=== PATIENT | female | born 1985 | race Caucasian/White ===

== ENCOUNTER 2018-10-03 08:01 | Day surgery (SDC) | payer OTHER ==
[2018-10-02 17:05] VITALS: Ht 167.6 cm; Wt 90.9 kg
[~2018-10-03] VITALS: Ht 167.6 cm; Wt 90.9 kg
[2018-10-03] VITALS (15 sets, daily range): BP systolic 116–158; BP diastolic 73–95; PULSE 75–84; RESP 15–21
[~2018-10-03 08:01] MED LIST: CEFAZOLIN 1 GM INJ ONE
[2018-10-03] MEDS ORDERED: EMTR1TAB16 PO (08:38)
[2018-10-03] MEDS ORDERED: DOLU50TA PO (08:38)
[2018-10-03] MEDS ORDERED: POLYMYXIN/BACITRACIN 1L IRRIG ONE (09:38)
--- NOTE | 2018-10-03 09:49 | PREAC ---
Date/Time of Note Date/Time of Note DATE: 10/03/18 TIME: 09:48 Anesthesia Eval and Record Evaluation Time Pre-Procedure Interview DATE: 10/03/18 TIME: 09:48 Age 32 Sex female NPO: 8 hrs Preoperative diagnosis right ankle fx Planned procedure Right ankle arthroscopy, ORIF Past Medical History Past Medical History: Includes Pulm: Smoking Hx Infection(s): HIV Surgery & Anesthesia Issues No known issue Meds Anticoagulation: No Beta Indigo within 24 hr: No Reason Beta Indigo not given: Pt. not on B-Indigo Reported Medications Emtricitabine/Tenofov Alafenam (Descovy 200-25 mg Tablet) 1 Each Tablet, 1 EACH PO DAILY, TAB 10/03/18 Dolutegravir Sodium (Tivicay) 50 Mg Tablet, 50 MG PO DAILY, TAB 10/03/18 Meds reviewed: Yes Allergies Coded Allergies: No Known Allergy (Unverified , 10/03/18) Allergies Reviewed: Yes Labs/Studies Labs Reviewed: Reviewed by anesthesiologist test: Negative Studies: ECG (sr), CXR (nl) Pre-procedure Exam Last vitals Vital Signs Date Temp Pulse Resp B/P (MAP) Pulse Ox O2 O2 Flow FiO2 Time Delivery Rate 10/03/18 98.3 75 18 124/73 99 Room Air 08:57 (90) Airway: Adequate mouth opening Mallampati: Mallampati I Teeth: Normal Lung: Normal Heart: Normal ASA Physical Status ASA physical status: 2 Emergency: None Planned Anesthetic General/MAC: ETT Nerve block: Femoral (right), Sciatic (right) Planned Pain Management Single shot nerve block, Parenteral pain med Pre-operative Attestations Prior to commencing anesthesia and surgery, the patient was re-evaluated, there was verification of: *The patient's identity *The results of appropriate recent lab work and preoperative vital signs *The above evaluation not changing prior to induction *Anesthetic plan, risk benefits, alternative and complications discussed with patient/family; questions answered; patient/family understands, accepts and wishes to proceed. ANDERS CHILDERS MD Oct 03, 2018 09:49
[2018-10-03] MEDS ORDERED: ROPIVACAINE 0.5 % 30 ML VIAL ONE ×2 (09:53→09:58)
[2018-10-03] MEDS ORDERED: BACITRACIN/POLYMYXIN 28.35 GM OINT TOP ONE (09:54)
[2018-10-03] MEDS ORDERED: ROPIVACAINE 0.2% 20 ML VIAL ONE (09:56)
[2018-10-03] MEDS ORDERED: PROPOFOL 20 ML ONE (09:56)
[2018-10-03] MEDS ORDERED: MIDAZOLAM 1 MG/ML 2 ML INJ ONE (09:56)
[2018-10-03] MEDS ORDERED: ONDANSETRON 4 MG INJ ONE (09:56)
[2018-10-03] MEDS ORDERED: METOCLOPRAMIDE 10 MG INJ ONE (09:58)
--- NOTE | 2018-10-03 10:14 | HPN ---
Date/Time of Note Date/Time of Note DATE: 10/03/18 TIME: 10:14 Interval H&P Admission Note Pt. seen H&P reviewed: No system changes RIMMA MERCER MD Oct 03, 2018 10:14
[2018-10-03] MEDS ORDERED: morphine 2 MG INJ IV PRN (10:30)
[2018-10-03] MEDS ORDERED: FENTAnyl 50 MCG/ML VIAL ONE (10:36)
[2018-10-03] MEDS ORDERED: ROCURONIUM 50 MG INJ ONE (11:17)
[2018-10-03] MEDS ORDERED: MEPERIDINE 25 MG INJ IV PRN (11:30)
[2018-10-03] MEDS ORDERED: ONDANSETRON 4 MG INJ IV PRN (11:30)
[2018-10-03] MEDS ORDERED: OXYCODONE/ACETAMINOPHEN (5/325) TAB PO PRN (11:30)
[2018-10-03] MEDS ORDERED: DIPHENHYDRAMINE 50 MG INJ IV PRN (11:30)
[2018-10-03] MEDS ORDERED: HYDROmorphONE 1 MG/5 ML IV SYRINGE IV PRN ×3 (11:30)
[2018-10-03] MEDS ORDERED: KETOROLAC 30 MG INJ IV PRN (11:30)
[2018-10-03] MEDS ORDERED: HYDROmorphONE 2 MG/ML SYG ONE (12:33)
--- NOTE | 2018-10-03 14:18 | SIPON ---
Date/Time of Note Date/Time of Note DATE: 10/03/18 TIME: 14:06 Operative Report Preoperative Diagnosis Right ankle trimalleolar ankle fracture Right ankle traumatic synovitis Postoperative Diagnosis Right ankle trimalleolar ankle fracture Right ankle traumatic synovitis Right ankle loose body Right ankle Osteochondral lesion of the anterolateral (5x2mm) talar dome and medial (6x4 mm) talar dome Right ankle syndesmosis disruption Operation/Procedure Performed Right ankle ORIF of trimalleolar ankle fracture without fixation of posterior lip Right ankle arthroscopy with extensive debridement Right ankle arthroscopy with loose body removal Right ankle arthroscopy with microfracture of Osteochondral lesion of the anteromedial talar dome and medial talar dome Right ankle arthroscopy with application of chondral autograft to the Osteochondral lesion of the medial talar dome Right ankle ORIF of syndesmosis disruption Right ankle placement of amniotic membrane Surgeon Darron Mercer MD cook's assistant Katt Jason PA-C Anesthesia: general (Basharka), other (TT- 83 min) Estimated blood loss: minimal Transfusion Required none Specimen none Grafts/Implants Arthrex fibular titanium locking plate Arthrex Tightrope Arthrex Amnion Tisseel Fibrin Glue Arthrex 3.0 mm Quickfix PT screw Complications none DARRON MERCER MD Oct 03, 2018 14:16
--- NOTE | 2018-10-03 14:19 | OPR ---
Date/Time of Note Date/Time of Note DATE: 10/03/18 TIME: 14:19 Operative Report Procedure Date: Oct 03, 2018 Preoperative Diagnosis Right ankle trimalleolar ankle fracture Right ankle traumatic synovitis Postoperative Diagnosis Right ankle trimalleolar ankle fracture Right ankle traumatic synovitis Right ankle loose body Right ankle Osteochondral lesion of the anterolateral (5x2mm) talar dome and medial (6x4 mm) talar dome Right ankle syndesmosis disruption Operation/Procedure Performed Right ankle ORIF of trimalleolar ankle fracture without fixation of posterior lip Right ankle arthroscopy with extensive debridement Right ankle arthroscopy with loose body removal Right ankle arthroscopy with microfracture of Osteochondral lesion of the anteromedial talar dome and medial talar dome Right ankle arthroscopy with application of chondral autograft to the Osteochondral lesion of the medial talar dome Right ankle ORIF of syndesmosis disruption Right ankle placement of amniotic membrane Surgeon Darron Mercer MD Brick Maker Katt Jason PA-C Anesthesia Type: general, other (Popliteal) Anesthesiologist: ANDERS CHILDERS MD Tourniquet Time: 83 min a 250 mm Hg Estimated Blood Loss: minimal Transfusion none Specimen none Grafts/Implants Arthrex fibular titanium locking plate Arthrex Tightrope Arthrex Amnion Tisseel Fibrin Glue Arthrex 3.0 mm Quickfix PT screw Complications none Pt Condition Post Procedure: stable Disposition: PACU Indications She is a 32-year-old female sustained a right ankle fracture dislocation it was indicated for surgery given the significant displacement of the fracture pattern. Risk Note: Patient was explained the risks and benefits of surgery and the patient's yocha dehe language including not limited to infection, bleeding, injury to blood vessels, nerves, ligaments or tendons. Risks of anesthesia, deep vein thrombosis and need for reduce future surgery. Patient acknowledged these risk by signing the surgical consent form. Procedure Description The patient was met in the preoperative holding area, marked with the correct operative extremity confirmed with both patient and consent. The patient was then brought back in the operative theater, placed supine on operative table, given preoperative antibiotics and preoperative regional block anesthesia. The patient was then placed in the arthroscopic thigh conteh with all bony prominences well padded with a nonsterile tourniquet placed on the operative extremity. The patient was then prepped and draped in the normal sterile fashion. All parties in the room did a timeout and everyone agreed it was the correct patient, and extremity and procedure. Initial distraction was placed across the joint and the superficial peroneal nerve had been marked out prior to distraction, and using extreme caution to avoid any injury to the neurovascular structures, the anteromedial, anterolateral, and posterolateral portals were created in the standard fashion. The arthroscope was brought into the ankle and a 21-point exam was performed showing extensive hemorrhagic scar tissue and synovitis in the ankle with extensive scar tissue in both the medial, lateral, posterior and anterior gutters. Also noted was a 1.05 cm cartilage Loose body with no bony prominence that was found in the posterior lateral aspect of the ankle, which was removed during the case. The syndesmosis was extensively debrided. There was a minimal posterior malleolar fracture with minimal articular disruption seen and the fracture at this point was well reduced under arthroscopic visualization. An osteochondral lesion of the anterior lateral talar dome measuring 5 x 2 mm as well as an osteochondral lesion of the medial talar dome measuring 6 x 4 mm was seen. Multiple other loose bodies were seen and removed. Both lesions were curetted and debrided then microfractured with both k wires picks. The large medial talar dome lesion then was treated with the chondral autograft reapplied to the defect bed that had been dried extensively then treated with fibrin glue. After this was done, the arthroscopes were removed. At this point, the thigh conteh was removed and the patient was well padded under both extremities and patient was then reprepped and draped, and all gloves and instruments were changed. Attention was then turned initially to the distal fibular fracture. An incision was made over the the fibula. The incision was taken down to the fibula with care taken to avoid injury to the neurovascular structures. The fracture was identified and reduced and fixated with a distal fibular plate and fibula was reduced and held out to show that there was fibular length and alignment and rotation had been re-achieved. Once this was shown, the wound was irrigated thoroughly. A manual external rotation stress xray was performed showing syndesmosis widening. A syndesmotic tightrope was then placed across the joint to reduce the syndesmosis. Talar tilt stress xray was performed showing eversion stress opening medially showing no deltoid rupture Attention was then brought over to the medial aspect of the ankle and incision was taken down over the medial aspect of the ankle where there was shown to be a medial malleolus fracture that was then treated with 3.0 mm partially threaded screws to confirm complete and anatomic reduction. All wounds were thoroughly irrigated and closed with initially 2-0 Vicryl, followed by 3-0 Monocryl followed by 3-0 nylon in a vertical mattress fashion. All wounds were dressed with Xeroform, antibiotic ointment, 4 x 4s, 5 ABDs were placed and the patient was placed in a well-padded short leg splint. Tourniquet had been brought down prior to this and hemostasis had been achieved prior to the wound closure. The wounds were irrigated thoroughly prior to closure as wel l. All sponge and needle counts were correct. GLOVE TAGGER NOTE: There was a need for an orthopedic surgical physician mortgage loan assistant during this case in order to hold the limb in the proper position and assist with reduction. Without the use of an orthopedic physician mortgage loan assistant the case would have been extensively longer and more complex. DARRON MERCER MD Oct 03, 2018 14:19
[2018-10-03] MEDS ORDERED: METOCLOPRAMIDE 10 MG INJ IV ONE (16:30)
[2018-10-03] MEDS ORDERED: METOCLOPRAMIDE 10 MG INJ IM ONE (16:30)
--- NOTE | 2018-10-04 11:00 | PAC ---
Date/Time of Note Date/Time of Note DATE: 10/04/18 TIME: 11:00 Post-Anesthesia Notes Post-Anesthesia Note Last documented vital signs Vital Signs Date Temp Pulse Resp B/P (MAP) Pulse Ox O2 O2 Flow FiO2 Time Delivery Rate 10/03/18 97.2 77 20 116/76 97 Room Air 15:56 (89) Activity: WNL Respiratory function: WNL Cardiovascular function: WNL Mental status: Baseline Pain reasonably controlled: Yes Hydration appropriate: Yes Nausea/Vomiting absent: No ANDERS CHILDERS MD Oct 04, 2018 11:00
== END 2018-10-03 17:00 | disposition home or self-care (01) ==
LOC: SDS 08:01
PROVIDERS: ATTEND Orthopaedic Surgery
DX: S82.851D Displaced trimalleolar fracture of right lower leg, subsequent encounter for closed fracture with routine healing (principal); W19.XXXD Unspecified fall, subsequent encounter; M65.871 Other synovitis and tenosynovitis, right ankle and foot; M24.071 Loose body in right ankle; M93.271 Osteochondritis dissecans, right ankle and joints of right foot
CPT/HCPCS: 27822; 29892; 29898; 73610; 82306; 84703; C1713; J0690; J1170; J2175; J2250; J2405; J2765; J2795; J3010; Z7512; Z7610